=== PATIENT | male | born 2000 | race Caucasian/White ===

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

== ENCOUNTER 2023-03-07 10:39 | Emergency (ER) | payer OTHER ==
[2023-03-07 10:46] VITALS: BP 143/79; PULSE 77; RESP 16; TEMP 98.4; BMI 36.2
[2023-03-07] MEDS ORDERED: IBUPROFEN 600 MG TABLET (FP) PO ONE ×2 (11:04→11:19)
== END 2023-03-07 12:46 | disposition home or self-care (01) ==
LOC: JER 10:39 → JERFT 10:39
DX: M79.604 Pain in right leg (principal); W21.02XA Struck by soccer ball, initial encounter; Y93.66 Activity, soccer; Y92.322 Soccer field as the place of occurrence of the external cause
CPT/HCPCS: 73590-TC-RT-FY; 73610-TC-RT-FY; 99283-25